=== PATIENT | male | born 1950 ===

== ENCOUNTER 2021-06-03 | Inpatient (IN) | payer MEDICARE ==
[~2021-06-03] VITALS: Ht 175.3 cm; Wt 45.0 kg
--- NOTE | 2021-06-04 00:11 | NUR ---
PT ARRIVES PER EMS ON CART IN VERY POOR CONDITION. HAIR MATTED WITH UNKNOW SUBSTANCE. BODY IS FRAIL. BILATERAL LOWER EXTREMTIES COVERED W RED SORES/DRY SKIN. SMELL IS FOUL. PT STATES HE LIVES ALONE. NO FAMILY A FRIEND NAMED JUAQUIN DELIVERS HIM GROCERIES MONTH AND HE WAS UNABLE TO GET UP TO GET TO THEM. HE STATES NO HEALTH HX OTHER THAN COPD AND XSMOKER. HE IS THIRSTY AND ASK FOR WATER. GILSON BLANCO AT BEDSIDE ASSESSING. CHARGE NURSE LÓPEZ AND AID SHEY CLEANING PT UP. FECES AND URINE ON BODY. PT GIVES PERMISSION TO CUT HAIR AT BEDSIDE. HX AND ASSESSMENT OBTAINED BEST OF ABILITY.
[2021-06-04 00:54] VITALS: BP 134/51; PULSE 89; TEMP 97
[2021-06-04 01:54] LABS: HEMATOCRIT 45.9 % (42.0-52.0); HEMOGLOBIN 13.8 g/dl (13.5-18.0); MEAN CELL VOLUME 107 fl (80.0-100.0); MEAN CORPUSCULAR HEMOGLOBIN 32 pg (27.0-31.0); MEAN CORPUSCULAR HGB CONC 30 g/dl (33.0-37.0); MEAN PLATELET VOLUME 10.7 fl (7.4-10.4); PLATELET COUNT 217 K/mm3 (130-400); RED BLOOD COUNT 4.28 M/mm3 (4.20-5.60); REDCELL DISTRIBUTION WIDTH-CV 14.7 % (11.5-14.5)
--- NOTE | 2021-06-04 01:59 | NUR ---
reported WBC at 34.6 to FRANCIS Rodriguez.
[2021-06-04 02:11] LABS: CALCIUM 8.8 mg/dL (8.4-10.2); CREATININE, serum 1.02 mg/dL (0.72-1.25); POTASSIUM 5.3 mmol/L (3.5-4.5)
[2021-06-04 02:18] LABS: NEUTROPHILS 98 % (42.0-75.2)
[2021-06-04 02:19] LABS: ANISOCYTOSIS 1+; HYPOCHROMIA 1+; OVALOCYTES 1+; PLATELET ESTIMATE NORMAL (NORMAL); POIKILOCYTOSIS 1+; POLYCHROMASIA 1+
--- NOTE | 2021-06-04 03:18 | NUR ---
REPORTED TO GILSON PT HAS NO PULSE BY DOPPLER IN EITHER FOOT. XRAY DONE. WOUND CULTURE SENT. WILL COLLECT UA W NEXT VOID. IV FLUIDS AND ANTIBOTICS STARTED. TELE ON. FEET ELEVATED W PILLOW. PT ALLOWED FOR US TO CLEAN UP HIS MATTED HAIR WE OFFERED A BATH. PT DECLINES HE IS COLD AND TIRED. STATES MAYBE IN THE AM. WILL ATTEMPT AGAIN. PT GIVEN TURKEY SANDWICH, APPLESAUCE COOKIE AND ICE CREAM CONSUMED ALL AND WAS APPRECIATED. PEANUT BUTTER AND CRACKER LEFT FOR SNACK LATER. WATCHING TV. CALL LIGHT WI REACH. CONTACT PRECAUTIONS UNTIL WOUND CULTURES RETURN. OPERATOR VACUUM WILL FILE APS REPORT.
[2021-06-04 04:17] VITALS: BP 102/52; PULSE 76; TEMP 97.4
--- NOTE | 2021-06-04 04:46 | NUR ---
PT WILL BE NPO INCASE NEED TO DO ANYTHING SURGICAL TO PATIENT TODAY.
--- NOTE | 2021-06-04 05:48 | NUR ---
71 yo male admitted for further care and management of sepsis secondary to probable skin/soft tissue infection of bilateral lower extremities. ht 69in wt 45kg SCr 1.02 with estimated CrCl ~40 ml/min half life ~11.8 hours Plan: Patient received an initial loading dose of vancomycin 1000 mg x1 during transport (22.2 mg/kg); will follow with a maintenance regimen of vancomycin 750 mg q12h to target a goal trough of 15-20 mcg/ml. Will follow patient's renal function, micro data, and vancomycin levels as indicated to target a goal trough of 15-20 mcg/ml. Thank you for this dosing consult.
--- NOTE | 2021-06-04 06:20 | NUR ---
DR OLSON AND DR NORWOOD NOTIFED OF CONSULTS. DR NORWOOD ASKED FOR DR VELOZ TO BE NOTIFIED AFTER 0700 AM. NOTED AND WILL PASS ON TO DAY RN
[2021-06-04 07:15] VITALS: BP 90/50; PULSE 77
--- NOTE | 2021-06-04 08:00 | NUR ---
Patient laying in bed, A&Ox3. Sleeping, but easily awakened with verbal command. VSS, 2.5L oxymask. IV CDI, fluids infusing. Patient was incontinent of urine. Nurse assessed the patient and on right lower leg the patient had maggots crawling on the leg. Nurse removed some maggots and dressed the site to contain the remaining maggots. Heels elevated on pillow. Patient denies pain, reports being cold. Contact isolation in place. Patient NPO pending diagnostic test. Call light within reach
--- NOTE | 2021-06-04 10:10 | NUR ---
Counter Helper made report to Adult Protective Services (intake #[id number]). Patient presented to the hospital with matted hair and appeared to be malnourished. Per H&P, patient has no family and had not been seen/heard from in a month. SW collaborated with RN, Thi who advised patient may transfer to another hospital.
[2021-06-04 13:18] VITALS: BP 101/53; PULSE 79
[2021-06-04 14:14] LABS: PARTIAL THROMBOPLASTIN TIME 41.3 SECONDS (26.0-37.0)
--- NOTE | 2021-06-04 15:24 | NUR ---
Hvac Engineer met with patient to complete initial intake. Patient states he was living alone in [place] and does not have a current primary care provider, but does advise he used to be seen at [facility]. Patient states he also used to obtain medications through [facility] as well. Patient reports he does not have any DME at home. Patient states he was independent with ADLS until about a couple weeks ago. Patient reports he has been very week. Patient does not have Advance Directives and would like to complete DPOA-HC. Patient states he has no living family and wants to designate his friend, Tracy Kumar (ph#[phone]) to make medical decisions for him if he is unable. SW will continue to follow for discharge needs.
[2021-06-04 15:28] LABS: COLLECTION METHOD CLEAN CATCH
[2021-06-04 15:35] LABS: PH 5 (5-8); SQUAMOUS EPITHELIAL None Seen /hpf (0-10); URINE APPEARANCE Hazy (CLEAR/HAZY); URINE BACTERIA Rare (NONE SEEN); URINE BILIRUBIN Negative (NEGATIVE); URINE BLOOD Negative (NEGATIVE); URINE COLOR Yellow (YELLOW); URINE GLUCOSE Negative (NEGATIVE); URINE KETONE Negative (NEGATIVE); URINE LEUKOCYTE ESTERASE Negative (NEGATIVE); URINE NITRATE Negative (NEGATIVE); URINE PROTEIN(semi-quant) Negative (NEGATIVE); URINE RBC 0-2 /hpf (0-2); URINE UROBILINOGEN Negative (NEGATIVE)
[2021-06-04 15:56] VITALS: BP 104/70; PULSE 87
--- NOTE | 2021-06-04 16:00 | NUR ---
diesel powerplant supervisor, Lainey, RN and nurse cleaned the patients bilateral lower legs and removed maggots from the right lower leg and redressed the site. Kelly placed. Pericare provided before and after insertion. 16F with 10ml in balloon. Clear yellow urine, 400ml output. Patients bedding changed and gown changed. Repositioned for comfort. PICC WANG CDI, fluids infusing. Reports pain from being moved. Did not request pain medication. Call light within reach
--- NOTE | 2021-06-04 16:14 | NUR ---
Professor Of Architecture contacted patient's friend, Tracy and notified her that patient designated her as DPOA-HC. Tracy states she and her were DPOA-HC for patient's twin brother who passed four years ago. SW advised Tracy that patient was transferred to [facility] in [place].
--- NOTE | 2021-06-04 16:30 | NUR ---
Report to EMS. Nurse assisted [facility] Discharge packet with EMS and report called to [facility]. No further needs expressed. Personal belongings with the patient
== END 2021-06-04 16:30 | disposition short-term general hospital (02) | DRG 871 ==
LOC: SURG → MEDICAL 22:31 → SURG 06-04 16:30
PROVIDERS: Internal Medicine; Student in an Organized Health Care Education/Training Program; ADMIT Internal Medicine
PROC: 02HV33Z Insertion of Infusion Device into Superior Vena Cava, Percutaneous Approach (ICD-10-PCS; principal; 2021-06-04)
DX: A41.9 Sepsis, unspecified organism (principal); E43 Unspecified severe protein-calorie malnutrition; J96.21 Acute and chronic respiratory failure with hypoxia; L03.116 Cellulitis of left lower limb; L03.115 Cellulitis of right lower limb; I96 Gangrene, not elsewhere classified; L97.429 Non-pressure chronic ulcer of left heel and midfoot with unspecified severity; L97.419 Non-pressure chronic ulcer of right heel and midfoot with unspecified severity; Z68.1 Body mass index [BMI] 19.9 or less, adult; J44.9 Chronic obstructive pulmonary disease, unspecified; I50.9 Heart failure, unspecified; F17.210 Nicotine dependence, cigarettes, uncomplicated; R62.7 Adult failure to thrive
CPT/HCPCS: 99223-AI; A4314; C1751; J1644; J2543; J3370; J7030; J7050